=== PATIENT | male | born 2000 | race Caucasian/White ===

== ENCOUNTER 2022-09-14 15:38 | Emergency (ER) | payer BC, OTHER ==
[2022-09-14] MEDS ORDERED: Ketorolac 30 MG/ML SDV IM ONE (18:07)
== END 2022-09-14 18:46 | disposition home or self-care (01) ==
LOC: JD.ED 15:38
DX: S93.402A Sprain of unspecified ligament of left ankle, initial encounter (principal); W03.XXXA Other fall on same level due to collision with another person, initial encounter
CPT/HCPCS: 29515; 73610; 96372; 99283; J1885